=== PATIENT | male | born 1955 | race African-American/Black ===

== ENCOUNTER 2017-01-24 23:28 | Emergency (ER) | payer SELFPAY ==
[~2017-01-24] VITALS: Ht 185.4 cm; Wt 93.0 kg
[2017-01-25] MEDS ORDERED: KETOROLAC 30MG/ML VIAL IM ONE (00:30)
[2017-01-25] MEDS ORDERED: COLCHICINE 0.6MG TABLET PO ONE (01:45)
[2017-01-25 04:38] VITALS: BP 128/77
== END 2017-01-25 04:43 | disposition home or self-care (01) ==
LOC: ER 23:28
DX: M17.12 Unilateral primary osteoarthritis, left knee (principal); R03.0 Elevated blood-pressure reading, without diagnosis of hypertension
CPT/HCPCS: 36415; 73562; 84550; 96372; 99285; J1885; L1830